=== PATIENT | female | born 1960 | race Caucasian/White ===

== ENCOUNTER 2017-02-13 12:30 | Outpatient (CLI) | payer OTHER ==
--- NOTE | 2017-02-13 14:35 | DIAGNOSTIC IMAGING REPORT ---
PROCEDURE: XR LUMBAR SPINE 5 VIEWS INDICATION: FACET ARTHOPATHY TECHNIQUE: Five views of the lumbar spine including lateral flexion and extension. COMPARISON: None. Correlation made to recent CT abdomen pelvis 06/15/2016 FINDINGS: Five lumbar-type vertebral bodies are present. Mild superior end plate scalloping of L2 and L3. This is similar in extent compared to the prior study. Mild rightward curvature of the apex at the L2-3 level. No AP subluxation in the neutral position. No significant subluxation in flexion or extension. Mild disc height loss at all levels, most extensive at the L5-S1 level. Minor facet sclerosis at L3-4, L4-5, and L5-S1. Bowel gas pattern demonstrates moderate retained stool. Surgical clips in the right upper quadrant and bilateral lower quadrants. IMPRESSION: 1. Mild rightward lumbar curvature. 2. No significant subluxation with flexion, extension, or in the neutral position. 3. Mild superior endplate scalloping of L2 and L3, stable compared to the prior study. 4. Mild degenerative disc disease at L5-S1. 6. Minor facet sclerosis in the lower lumbar spine.
== END 2017-02-13 23:00 ==
LOC: XR SRH 12:30
DX: M12.88 Other specific arthropathies, not elsewhere classified, other specified site (principal); M51.37 Other intervertebral disc degeneration, lumbosacral region